=== PATIENT | female | born 1955 | race Two or more races ===

== ENCOUNTER → 2025-08-30 | Outpatient (BNVA) | payer MEDICARE, OTHER, SELFPAY | END | disposition home or self-care (01) | PROVIDERS: PCP Internal Medicine; Referring Provider Internal Medicine; Visit Provider Urology | DX: R31.9 Hematuria, unspecified (principal); I10 Essential (primary) hypertension; J30.9 Allergic rhinitis, unspecified | CPT/HCPCS: 81003; 99202; G0463 ==